=== PATIENT | male | born 1960 | race Asian ===

== ENCOUNTER 2020-11-05 17:09 | Emergency (ER) | payer BC ==
[~2020-11-05] VITALS: Ht 180.3 cm; Wt 62.2 kg
[2020-11-05] MEDS ORDERED: ALBUTEROL SULFATE 2.5 MG/3 ML ONE (18:00)
[2020-11-05] MEDS ORDERED: ALBUTEROL SULFATE 2.5 MG/3 ML NPPB ONE (18:00)
[2020-11-05 18:20] VITALS: BP 146/110
--- NOTE | 2020-11-05 18:49 | NUR ---
Patient given discharge instructions and they have confirmed that they understand the instructions. Patient ambulatory with steady gait. Patient leaving w/ family.
== END 2020-11-05 18:51 | disposition home or self-care (01) ==
LOC: ED 18:45
DX: J98.01 Acute bronchospasm (principal); R07.2 Precordial pain; Z87.891 Personal history of nicotine dependence
CPT/HCPCS: 71045; 93005; 94640; 99283; J7613

== ENCOUNTER 2020-12-28 12:06 | Emergency (ER) | payer BC ==
[~2020-12-28] VITALS: Ht 177.8 cm; Wt 62.4 kg
--- NOTE | 2020-12-28 12:41 | NUR ---
PT CAME IN [place] BACK PAIN, CHEST PAIN AND SORE THROAT X 4 DAYS. WENT TO [facility] MORN[facility] AND WAS THOUGHT TO POTENTIALLY HAVE PNA AND WAS TOLD TO COME TO ER. EKG COMPLETE. PT RESTING IN [facility]. FAMILY MEMBER IS BEDSIDE. ONLY RECIEVED 1 DOSE OF COVID VACCINE
--- NOTE | 2020-12-28 13:16 | NUR ---
RECEIVED REPORT FROM KATY DOMINGUEZ. PT RESTING ON [facility]. NADN. [place].
[2020-12-28 13:28] LABS: BASOPHILS % (AUTO) 1 % (0-1); EOSINOPHILS % (AUTO) 3 % (1-7); LYMPHOCYTES % (AUTO) 34 % (22-44); MEAN CORPUSCULAR HEMOGLOBIN 28.7 pg (27.5-34.5); MEAN CORPUSCULAR HGB CONC 33.1 g/dL (33.2-36.2); MEAN PLATELET VOLUME 8.3 fL (7.4-10.4); MONOCYTES % (AUTO) 7 % (2-9); NEUTROPHILS % (AUTO) 55 % (42-75); PLATELET COUNT 209 x10^3/uL (130-400); RED BLOOD COUNT 5.25 x10^6/uL (4.38-5.82); RED CELL DISTRIBUTION WIDTH 13.4 % (9.4-14.8)
[2020-12-28] MEDS ORDERED: CEFTRIAXONE 1,000 MG in DEXTROSE 5% 50 ML IVPB ONE (13:30)
[2020-12-28] MEDS ORDERED: AZITHROMYCIN 500 MG in SODIUM CHLORIDE 0.9% 250 ML IV ONE (13:30)
[2020-12-28 13:41] LABS: ALANINE AMINOTRANSFERASE 27 U/L (12-78); ALBUMIN 3.4 g/dL (3.4-5.0); ANION GAP 4 mmol/L (5-15); CALCIUM 8.2 mg/dL (8.5-10.1); CHLORIDE 111 mmol/L (98-107); CREATININE 1.09 mg/dL (0.7-1.3)
[2020-12-28 13:45] LABS: ALKALINE PHOSPHATASE 93 U/L (45-117); BILIRUBIN,TOTAL 0.3 mg/dL (0.2-1.0); TOTAL PROTEIN 6.8 g/dL (6.4-8.2); TROPONIN I < 0.015 ng/mL (0.000-0.045)
--- NOTE | 2020-12-28 13:59 | NUR ---
PT CHART REVIEWED AND PLACED FOR RECHECK.
--- NOTE | 2020-12-28 14:33 | NUR ---
PT RESTING ON GURNEY. NADN. [place].
--- NOTE | 2020-12-28 14:43 | NUR ---
ERP DR. HARRIS AT BEDSIDE FOR RE-EVAL.
[2020-12-28 15:22] VITALS: BP 157/100
--- NOTE | 2020-12-28 15:25 | NUR ---
PT RESTING ON GURNEY. NADN. [place].
== END 2020-12-28 15:35 | disposition home or self-care (01) ==
LOC: ED 12:35
DX: J18.9 Pneumonia, unspecified organism (principal); R94.31 Abnormal electrocardiogram [ECG] [EKG]; J45.909 Unspecified asthma, uncomplicated; Z88.6 Allergy status to analgesic agent
CPT/HCPCS: 36415; 80053; 83605; 83880; 84484; 85025; 87040; 93005; 96365; 96367; 99284; J0456; J0696; J7050